=== PATIENT | male | born 1965 | race Caucasian/White ===

== ENCOUNTER 2018-05-14 07:20 | Inpatient (IN) | payer BC ==
[~2018-05-14 07:20] MED LIST: ACETAMINOPHEN 1000 MG/100 ML IVPB; EPHEDrine SULFATE 50 MG/5 ML SYG
[2018-05-14 09:17] LABS: ADD MAN DIFF? NO
[2018-05-14 09:19] LABS: BASOPHILS % 0.4 % (0.0-2.0); EOSINOPHILS # 0.2 10^3/ul (0.0-0.5); EOSINOPHILS % 3.9 % (0.0-7.0); HEMATOCRIT 38.2 % (37.0-47.0); HEMOGLOBIN 12.5 g/dl (12.0-16.0); LYMPHOCYTES # 0.8 10^3/ul (0.8-2.9); LYMPHOCYTES % 14.5 % (15.0-51.0); MEAN CORPUSCULAR HEMOGLOBIN 28.7 pg (29.0-33.0); MEAN CORPUSCULAR HGB CONC 32.7 g/dl (32.0-37.0); MEAN CORPUSCULAR VOLUME 87.6 fl (82.0-101.0); MEAN PLATELET VOLUME 8.2 fl (7.4-10.4); MONOCYTE # 0.4 10^3/ul (0.3-0.9); MONOCYTES % 7.7 % (0.0-11.0); NEUTROPHILS % 73.1 % (39.0-77.0); PLATELET COUNT 470 10^3/UL (140-415); RED BLOOD COUNT 4.36 10^6/ul (4.20-5.40); RED CELL DISTRIBUTION WIDTH 14.5 % (11.5-14.5)
[2018-05-14 09:19] LABS: WHITE BLOOD COUNT 5.4 10^3/ul (4.8-10.8)
[2018-05-14 09:39] LABS: ALANINE AMINOTRANSFERASE 34 IU/L (13-69); ALBUMIN 3.7 g/dl (3.3-4.9); ALBUMIN/GLOBULIN RATIO 1.19; ALKALINE PHOSPHATASE 92 IU/L (42-121); ANION GAP 11 (8-16); ASPARTATE AMINO TRANSFERASE 30 IU/L (15-46); BILIRUBIN,INDIRECT 0.4 mg/dl (0-1.1); BILIRUBIN,TOTAL 0.4 mg/dl (0.2-1.3); BLOOD UREA NITROGEN 10 mg/dl (7-20); CALCIUM 9.3 mg/dl (8.4-10.2); CARBON DIOXIDE 31 mmol/L (21-31); CHLORIDE 103 mmol/L (97-110); CREATININE 0.74 mg/dl (0.44-1.00); GLUCOSE 85 mg/dl (70-220); SODIUM 141 mmol/L (135-144); TOTAL PROTEIN 6.8 g/dl (6.1-8.1)
[2018-05-14 09:49] LABS: INR 0.96; PROTIME 12.9 Sec (11.9-14.9)
[2018-05-14] MEDS ORDERED: MIDAZOLAM 1 MG/ML 2 ML INJ (11:02)
[2018-05-14] MEDS ORDERED: ROCURONIUM 50 MG INJ ×2 (11:02→13:32)
[2018-05-14] MEDS ORDERED: CEFAZOLIN 1 GM INJ (11:02)
[2018-05-14] MEDS ORDERED: ROPIVACAINE 0.2% 20 ML VIAL (11:02)
[2018-05-14] MEDS ORDERED: PROPOFOL 20 ML ×3 (11:02→13:32)
[2018-05-14] MEDS ORDERED: METOCLOPRAMIDE 10 MG INJ IV (12:30)
[2018-05-14] MEDS ORDERED: EPHEDrine SULFATE 50 MG/5 ML SYG IV (12:30)
[2018-05-14] MEDS ORDERED: MEPERIDINE 25 MG INJ IV (12:30)
[2018-05-14] MEDS ORDERED: ONDANSETRON 4 MG INJ IV ×2 (12:30→16:30)
[2018-05-14] MEDS ORDERED: HYDROmorphONE 1 MG/5 ML IV SYRINGE IV ×2 (12:30)
[2018-05-14] MEDS ORDERED: morphine 2 MG INJ IV ×3 (12:30→16:30)
[2018-05-14] MEDS ORDERED: hydrALAzine 20 MG INJ IV (12:30)
[2018-05-14] MEDS ORDERED: NALBUPHINE HCL (10 MG/1 ML) INJ IV ×2 (12:30→16:30)
[2018-05-14] MEDS ORDERED: DIPHENHYDRAMINE 50 MG INJ IV ×3 (12:30→16:30)
[2018-05-14] MEDS ORDERED: FENTAnyl 50 MCG/ML VIAL IV (12:30)
[2018-05-14] MEDS: CEFAZOLIN 2 GM/50 ML (PMX) 50 ML IVPB (12:30)
[2018-05-14] MEDS ORDERED: NALOXONE (0.4 MG/ML) INJ IV ×2 (12:30→16:30)
[2018-05-14] MEDS ORDERED: LABETALOL HCL 20MG INJ IV (12:30)
[2018-05-14] MEDS ORDERED: PHENYLephrine (100 MCG/ML) 5ML SYG (12:45)
[2018-05-14] MEDS ORDERED: METHYLENE BLUE 1% 10 ML INJ (14:50)
[2018-05-14] MEDS ORDERED: FUROSEMIDE 20 MG INJ (15:07)
[2018-05-14] MEDS ORDERED: GLYCOPYRROLATE 0.4 MG INJ (15:53)
[2018-05-14] MEDS ORDERED: NEOSTIGMINE 3 MG/3 ML SYRINGE (15:53)
[2018-05-14] MEDS ORDERED: morphine SULFATE/PF (10 MG/10 ML) INJ (16:04)
[2018-05-14] MEDS: FENTAnyl 50 MCG/ML VIAL IV ×3 (16:24→16:52)
[2018-05-14] MEDS ORDERED: HYDROmorphONE 0.5 MG/0.5 ML SYG IV ×2 (16:30)
[2018-05-14] MEDS ORDERED: ACETAMINOPHEN 500 MG TAB PO (16:30)
[2018-05-14 16:57] LABS: ADD MAN DIFF? NO
[2018-05-14 16:59] LABS: BASOPHILS % 0.2 % (0.0-2.0); EOSINOPHILS # 0.1 10^3/ul (0.0-0.5); HEMATOCRIT 38.4 % (42.0-52.0); HEMOGLOBIN 12.2 g/dl (14.0-18.0); LYMPHOCYTES # 0.9 10^3/ul (0.8-2.9); LYMPHOCYTES % 7.6 % (15.0-51.0); MEAN CORPUSCULAR HGB CONC 31.8 g/dl (32.0-37.0); MEAN CORPUSCULAR VOLUME 88.3 fl (82.0-101.0); MONOCYTE # 0.6 10^3/ul (0.3-0.9); MONOCYTES % 5.1 % (0.0-11.0); NEUTROPHIL # 10.1 10^3/ul (1.6-7.5); NEUTROPHILS % 85.8 % (39.0-77.0); PLATELET COUNT 443 10^3/UL (140-415); RED BLOOD COUNT 4.35 10^6/ul (4.70-6.10); RED CELL DISTRIBUTION WIDTH 14.5 % (11.5-14.5)
[2018-05-14 16:59] LABS: WHITE BLOOD COUNT 11.7 10^3/ul (4.8-10.8)
[2018-05-14 17:25] LABS: ALANINE AMINOTRANSFERASE 31 IU/L (13-69); ALBUMIN 3.1 g/dl (3.3-4.9); ALKALINE PHOSPHATASE 82 IU/L (42-121); ANION GAP 11 (8-16); ASPARTATE AMINO TRANSFERASE 24 IU/L (15-46); BILIRUBIN,INDIRECT 0.3 mg/dl (0-1.1); BILIRUBIN,TOTAL 0.3 mg/dl (0.2-1.3); BLOOD UREA NITROGEN 10 mg/dl (7-20); CALCIUM 8.3 mg/dl (8.4-10.2); CARBON DIOXIDE 25 mmol/L (21-31); CHLORIDE 107 mmol/L (97-110); CREATININE 0.79 mg/dl (0.61-1.24); GLUCOSE 108 mg/dl (70-220); POTASSIUM 3.7 mmol/L (3.5-5.1); SODIUM 139 mmol/L (135-144); TOTAL PROTEIN 5.9 g/dl (6.1-8.1)
[2018-05-14] MEDS: SOD CHLORIDE 0.9% 1,000 ML IV (22:00)
[2018-05-15] MEDS: CEFAZOLIN 2 GM/50 ML (PMX) 50 ML IVPB ×2 (01:20→08:39)
[2018-05-15] MEDS: SOD CHLORIDE 0.9% 1,000 ML IV ×3 (01:53→19:53)
[2018-05-15] MEDS: HYDROmorphONE 0.5 MG/0.5 ML SYG IV ×9 (02:46→23:40)
[2018-05-15] MEDS: FENTAnyl 2MCG/ML-ROPIV 0.2% 100 ML BAG EPI ×2 (04:10→17:39)
[2018-05-15 05:42] LABS: ADD MAN DIFF? NO
[2018-05-15 05:48] LABS: ABNORMAL IP MESSAGE 1; BASOPHILS % 0.2 % (0.0-2.0); EOSINOPHILS % 0.1 % (0.0-7.0); HEMATOCRIT 36.1 % (42.0-52.0); HEMOGLOBIN 11.4 g/dl (14.0-18.0); LYMPHOCYTES # 0.5 10^3/ul (0.8-2.9); LYMPHOCYTES % 5.1 % (15.0-51.0); MEAN CORPUSCULAR HEMOGLOBIN 27.9 pg (29.0-33.0); MEAN CORPUSCULAR HGB CONC 31.6 g/dl (32.0-37.0); MEAN CORPUSCULAR VOLUME 88.5 fl (82.0-101.0); MEAN PLATELET VOLUME 8.3 fl (7.4-10.4); MONOCYTE # 0.6 10^3/ul (0.3-0.9); MONOCYTES % 5.2 % (0.0-11.0); NEUTROPHIL # 9.3 10^3/ul (1.6-7.5); PLATELET COUNT 485 10^3/UL (140-415); POSITIVE DIFF @See below; RED BLOOD COUNT 4.08 10^6/ul (4.70-6.10); RED CELL DISTRIBUTION WIDTH 14.6 % (11.5-14.5)
[2018-05-15 05:48] LABS: WHITE BLOOD COUNT 10.5 10^3/ul (4.8-10.8)
[2018-05-15 06:17] LABS: ALANINE AMINOTRANSFERASE 25 IU/L (13-69); ALBUMIN 2.7 g/dl (3.3-4.9); ALBUMIN/GLOBULIN RATIO 0.96; ALKALINE PHOSPHATASE 62 IU/L (42-121); ANION GAP 8 (8-16); ASPARTATE AMINO TRANSFERASE 25 IU/L (15-46); BILIRUBIN,INDIRECT 0.3 mg/dl (0-1.1); BILIRUBIN,TOTAL 0.3 mg/dl (0.2-1.3); BLOOD UREA NITROGEN 10 mg/dl (7-20); CALCIUM 8.1 mg/dl (8.4-10.2); CARBON DIOXIDE 28 mmol/L (21-31); CHLORIDE 106 mmol/L (97-110); CREATININE 0.74 mg/dl (0.61-1.24); GLUCOSE 103 mg/dl (70-220); POTASSIUM 3.7 mmol/L (3.5-5.1); SODIUM 138 mmol/L (135-144); TOTAL PROTEIN 5.5 g/dl (6.1-8.1)
[2018-05-15] MEDS ORDERED: NALOXONE (0.4 MG/ML) INJ IV (18:00)
[2018-05-16] MEDS: HYDROmorphONE 0.5 MG/0.5 ML SYG IV ×8 (02:13→21:49)
[2018-05-16] MEDS: PANTOPRAZOLE 40 MG INJ IV (05:01)
[2018-05-16 05:31] LABS: ADD MAN DIFF? NO
[2018-05-16 05:41] LABS: ABNORMAL IP MESSAGE 1; BASOPHILS % 0.2 % (0.0-2.0); HEMATOCRIT 35.4 % (42.0-52.0); HEMOGLOBIN 11.2 g/dl (14.0-18.0); LYMPHOCYTES # 0.5 10^3/ul (0.8-2.9); LYMPHOCYTES % 4.1 % (15.0-51.0); MEAN CORPUSCULAR HEMOGLOBIN 27.7 pg (29.0-33.0); MEAN CORPUSCULAR HGB CONC 31.6 g/dl (32.0-37.0); MEAN CORPUSCULAR VOLUME 87.6 fl (82.0-101.0); MEAN PLATELET VOLUME 8.5 fl (7.4-10.4); MONOCYTES % 8.3 % (0.0-11.0); NEUTROPHIL # 10.6 10^3/ul (1.6-7.5); NEUTROPHILS % 87.1 % (39.0-77.0); PLATELET COUNT 520 10^3/UL (140-415); POSITIVE DIFF @See below; RED BLOOD COUNT 4.04 10^6/ul (4.70-6.10); RED CELL DISTRIBUTION WIDTH 14.7 % (11.5-14.5)
[2018-05-16 05:41] LABS: WHITE BLOOD COUNT 12.2 10^3/ul (4.8-10.8)
[2018-05-16] MEDS: FENTAnyl 2MCG/ML-ROPIV 0.2% 100 ML BAG EPI (05:55)
[2018-05-16 06:01] LABS: MAGNESIUM 2.1 mg/dl (1.7-2.5)
[2018-05-16 06:01] LABS: PHOSPHORUS 2.3 mg/dl (2.5-4.9)
[2018-05-16 06:13] LABS: ANION GAP 12 (8-16); BLOOD UREA NITROGEN 8 mg/dl (7-20); CALCIUM 8.3 mg/dl (8.4-10.2); CARBON DIOXIDE 27 mmol/L (21-31); CHLORIDE 104 mmol/L (97-110); CREATININE 0.69 mg/dl (0.61-1.24); GLUCOSE 123 mg/dl (70-220); POTASSIUM 3.6 mmol/L (3.5-5.1); SODIUM 139 mmol/L (135-144)
[2018-05-16] MEDS: SOD CHLORIDE 0.9% 1,000 ML IV ×3 (07:53→21:49)
[2018-05-16] MEDS: morphine 2 MG INJ IV (23:48)
[2018-05-17] MEDS: PANTOPRAZOLE 40 MG INJ IV (01:26)
[2018-05-17] MEDS: ONDANSETRON 4 MG INJ IV (01:26)
[2018-05-17] MEDS: morphine 2 MG INJ IV ×2 (02:28→06:03)
[2018-05-17] MEDS: HYDROmorphONE 0.5 MG/0.5 ML SYG IV ×4 (04:08→16:01)
[2018-05-17 05:28] LABS: ADD MAN DIFF? NO
[2018-05-17 05:32] LABS: WHITE BLOOD COUNT 6.6 10^3/ul (4.8-10.8)
[2018-05-17 05:32] LABS: ABNORMAL IP MESSAGE 1; BASOPHILS % 0.3 % (0.0-2.0); EOSINOPHILS % 0.5 % (0.0-7.0); HEMATOCRIT 34.2 % (42.0-52.0); LYMPHOCYTES # 0.4 10^3/ul (0.8-2.9); LYMPHOCYTES % 6.1 % (15.0-51.0); MEAN CORPUSCULAR HEMOGLOBIN 28.3 pg (29.0-33.0); MEAN CORPUSCULAR HGB CONC 32.2 g/dl (32.0-37.0); MEAN CORPUSCULAR VOLUME 87.9 fl (82.0-101.0); MEAN PLATELET VOLUME 8.3 fl (7.4-10.4); MONOCYTE # 0.7 10^3/ul (0.3-0.9); MONOCYTES % 10.4 % (0.0-11.0); NEUTROPHIL # 5.4 10^3/ul (1.6-7.5); NEUTROPHILS % 82.2 % (39.0-77.0); PLATELET COUNT 507 10^3/UL (140-415); POSITIVE DIFF @See below; RED BLOOD COUNT 3.89 10^6/ul (4.70-6.10); RED CELL DISTRIBUTION WIDTH 14.5 % (11.5-14.5)
[2018-05-17 05:46] LABS: ANION GAP 10 (8-16); BLOOD UREA NITROGEN 8 mg/dl (7-20); CALCIUM 8.4 mg/dl (8.4-10.2); CARBON DIOXIDE 28 mmol/L (21-31); CHLORIDE 103 mmol/L (97-110); CREATININE 0.55 mg/dl (0.61-1.24); GLUCOSE 104 mg/dl (70-220); POTASSIUM 3.6 mmol/L (3.5-5.1); SODIUM 137 mmol/L (135-144)
[2018-05-17 05:46] LABS: PHOSPHORUS 2.4 mg/dl (2.5-4.9)
[2018-05-17] MEDS: SOD CHLORIDE 0.9% 1,000 ML IV ×2 (08:06→23:14)
[2018-05-17] MEDS: FENTAnyl 2MCG/ML-ROPIV 0.2% 100 ML BAG EPI (17:40)
[2018-05-17] MEDS ORDERED: NALOXONE (0.4 MG/ML) INJ IV (21:30)
[2018-05-18] MEDS: SOD CHLORIDE 0.9% 1,000 ML IV ×2 (05:12→15:29)
[2018-05-18] MEDS: FENTAnyl 2MCG/ML-ROPIV 0.2% 100 ML BAG EPI ×2 (05:16→16:05)
[2018-05-18] MEDS: PANTOPRAZOLE 40 MG INJ IV (05:17)
[2018-05-19] MEDS: SOD CHLORIDE 0.9% 1,000 ML IV ×5 (02:02→17:07)
[2018-05-19] MEDS: FENTAnyl 2MCG/ML-ROPIV 0.2% 100 ML BAG EPI (02:39)
[2018-05-19] MEDS: PANTOPRAZOLE 40 MG INJ IV (05:15)
[2018-05-19 05:27] LABS: ADD MAN DIFF? NO
[2018-05-19 05:34] LABS: ABNORMAL IP MESSAGE 1; BASOPHILS % 0.2 % (0.0-2.0); EOSINOPHILS # 0.3 10^3/ul (0.0-0.5); EOSINOPHILS % 2.3 % (0.0-7.0); HEMATOCRIT 35.5 % (42.0-52.0); HEMOGLOBIN 11.3 g/dl (14.0-18.0); LYMPHOCYTES # 0.5 10^3/ul (0.8-2.9); LYMPHOCYTES % 4.9 % (15.0-51.0); MEAN CORPUSCULAR HEMOGLOBIN 27.3 pg (29.0-33.0); MEAN CORPUSCULAR HGB CONC 31.8 g/dl (32.0-37.0); MEAN CORPUSCULAR VOLUME 85.7 fl (82.0-101.0); MEAN PLATELET VOLUME 8.5 fl (7.4-10.4); MONOCYTE # 0.9 10^3/ul (0.3-0.9); MONOCYTES % 8.4 % (0.0-11.0); NEUTROPHIL # 8.9 10^3/ul (1.6-7.5); NEUTROPHILS % 83.5 % (39.0-77.0); PLATELET COUNT 485 10^3/UL (140-415); POSITIVE DIFF @See below; RED BLOOD COUNT 4.14 10^6/ul (4.70-6.10); RED CELL DISTRIBUTION WIDTH 14.1 % (11.5-14.5)
[2018-05-19 05:34] LABS: WHITE BLOOD COUNT 10.7 10^3/ul (4.8-10.8)
[2018-05-19 06:24] LABS: ANION GAP 11 (8-16); BLOOD UREA NITROGEN 11 mg/dl (7-20); CALCIUM 8.3 mg/dl (8.4-10.2); CARBON DIOXIDE 31 mmol/L (21-31); CHLORIDE 97 mmol/L (97-110); CREATININE 0.59 mg/dl (0.61-1.24); GLUCOSE 97 mg/dl (70-220); POTASSIUM 3.4 mmol/L (3.5-5.1); SODIUM 136 mmol/L (135-144)
[2018-05-19] MEDS: POTASSIUM CHLORIDE (SR) 20 MEQ TAB PO (08:40)
[2018-05-19] MEDS: HYDROmorphONE 0.5 MG/0.5 ML SYG IV ×3 (09:20→21:30)
[2018-05-19] MEDS: ONDANSETRON 4 MG INJ IV (10:10)
[2018-05-19] MEDS: HYDROmorphONE 1 MG/ML SYG IV (11:02)
[2018-05-19] MEDS ORDERED: morphine SULFATE/PF (10 MG/10 ML) INJ (11:51)
[2018-05-19] MEDS: IOHEXOL 300MG/ML 150 ML BTL (13:31)
[2018-05-19] MEDS: SOD CHLORIDE 0.9% 100 ML (13:31)
[2018-05-19] MEDS ORDERED: morphine 2 MG INJ IV ×2 (14:00)
[2018-05-19] MEDS ORDERED: NALOXONE (0.4 MG/ML) INJ IV (14:00)
[2018-05-19] MEDS ORDERED: NALBUPHINE HCL (10 MG/1 ML) INJ IV (14:00)
[2018-05-19] MEDS ORDERED: DIPHENHYDRAMINE 50 MG INJ IV (14:00)
[2018-05-19 17:33] LABS: THYROID STIMULATING HORMONE 0.724 MIU/L (0.465-4.680)
[2018-05-19] MEDS ORDERED: VANCOMYCIN IV PER PHARMACY XX (18:00)
[2018-05-19] MEDS: PIPER-TAZO 3.375 GM IV (PMX) 100 ML IVPB ×2 (18:16→23:05)
[2018-05-19 19:45] LABS: ADD MAN DIFF? NO
[2018-05-19 19:46] LABS: WHITE BLOOD COUNT 14.2 10^3/ul (4.8-10.8)
[2018-05-19 19:46] LABS: ABNORMAL IP MESSAGE 1; HEMATOCRIT 41.9 % (42.0-52.0); HEMOGLOBIN 13.6 g/dl (14.0-18.0); MEAN CORPUSCULAR HEMOGLOBIN 28.1 pg (29.0-33.0); MEAN CORPUSCULAR HGB CONC 32.5 g/dl (32.0-37.0); MEAN CORPUSCULAR VOLUME 86.6 fl (82.0-101.0); PLATELET COUNT 566 10^3/UL (140-415); POSITIVE DIFF @See below; RED BLOOD COUNT 4.84 10^6/ul (4.70-6.10); RED CELL DISTRIBUTION WIDTH 13.9 % (11.5-14.5)
[2018-05-19] MEDS ORDERED: VANCOMYCIN 1.5 GM in SOD CHLORIDE 0.9% 250 ML IVPB (20:00)
[2018-05-19 20:06] LABS: INR 1.26; PT RATIO 1.3
[2018-05-19] MEDS: metroNIDAZOLE 500 MG/NS (PMX) 100 ML IVPB (21:29)
[2018-05-19 22:47] LABS: BAND NEUTROPHILS #M 7.2 10^3/ul (0.0-0.6); BAND NEUTROPHILS % (M) 51 % (0-4); EOSINOPHILS % (M) 2 % (0-7); LYMPHOCYTES #M 0.1 10^3/ul (0.8-2.9); LYMPHOCYTES % (M) 1 % (15-51); METAMYELOCYTES #M 0.4 10^3/ul (0.0-0.0); METAMYELOCYTES %M 3 % (0-0); MONOCYTE #M 0.5 10^3/ul (0.3-0.9); MONOCYTES % (M) 4 % (0-11); MYELOCYTES #M 0.1 10^3/ul (0.0-0.0); MYELOCYTES % (M) 1 % (0-0); PLASMA CELLS #M 0.1 10^3/ul (0.0-0.0); PLASMAC%(M) 1 % (0); PLATELET ESTIMATE INCREASED; REACTIVE LYMPHOCYTES #M 0.1 10^3/ul (0.0-0.0); REACTIVE LYMPHOCYTES% (M) 1 % (0-0); SEG NEUT #M 6.1 10^3/ul (1.6-7.5); SEGMENTED NEUTROPHILS (M) % 36 % (39-77); SMUDGE%M 13 % (0-0)
[2018-05-20] MEDS: HYDROmorphONE 0.5 MG/0.5 ML SYG IV ×2 (00:32→14:41)
[2018-05-20] MEDS: SOD CHLORIDE 0.9% 1,000 ML IV ×3 (01:53→21:15)
[2018-05-20] MEDS: PANTOPRAZOLE 40 MG INJ IV (05:06)
[2018-05-20] MEDS: PIPER-TAZO 3.375 GM IV (PMX) 100 ML IVPB ×4 (05:06→23:24)
[2018-05-20] MEDS: metroNIDAZOLE 500 MG/NS (PMX) 100 ML IVPB ×3 (05:07→21:15)
[2018-05-20 08:52] LABS: ABNORMAL IP MESSAGE 1; HEMATOCRIT 38.7 % (42.0-52.0); HEMOGLOBIN 12.6 g/dl (14.0-18.0); MEAN CORPUSCULAR HEMOGLOBIN 27.6 pg (29.0-33.0); MEAN CORPUSCULAR HGB CONC 32.6 g/dl (32.0-37.0); MEAN CORPUSCULAR VOLUME 84.7 fl (82.0-101.0); MEAN PLATELET VOLUME 8.6 fl (7.4-10.4); PLATELET COUNT 557 10^3/UL (140-415); POSITIVE DIFF @See below; RED BLOOD COUNT 4.57 10^6/ul (4.70-6.10); RED CELL DISTRIBUTION WIDTH 14.4 % (11.5-14.5)
[2018-05-20 09:03] LABS: ADD MAN DIFF? YES
[2018-05-20 09:09] LABS: ALANINE AMINOTRANSFERASE 20 IU/L (13-69); ALBUMIN 2.6 g/dl (3.3-4.9); ALKALINE PHOSPHATASE 64 IU/L (42-121); ANION GAP 13 (8-16); ASPARTATE AMINO TRANSFERASE 15 IU/L (15-46); BILIRUBIN,INDIRECT 0.4 mg/dl (0-1.1); BILIRUBIN,TOTAL 0.4 mg/dl (0.2-1.3); BLOOD UREA NITROGEN 25 mg/dl (7-20); CALCIUM 8.1 mg/dl (8.4-10.2); CARBON DIOXIDE 25 mmol/L (21-31); CHLORIDE 100 mmol/L (97-110); CREATININE 0.99 mg/dl (0.61-1.24); GLUCOSE 126 mg/dl (70-220); POTASSIUM 3.9 mmol/L (3.5-5.1); SODIUM 134 mmol/L (135-144); TOTAL PROTEIN 5.2 g/dl (6.1-8.1)
[2018-05-20 10:22] LABS: ANISOCYTOSIS 1+ (0-0); BAND NEUTROPHILS % (M) 63 % (0-4); LYMPHOCYTES #M 0.3 10^3/ul (0.8-2.9); LYMPHOCYTES % (M) 2 % (15-51); MONOCYTE #M 0.9 10^3/ul (0.3-0.9); MONOCYTES % (M) 6 % (0-11); PLATELET ESTIMATE INCREASED; POLYCHROMASIA 2+ (0-0); SEG NEUT #M 6.2 10^3/ul (1.6-7.5); SEGMENTED NEUTROPHILS (M) % 29 % (39-77); SMUDGE%M 1 % (0-0)
[2018-05-20] MEDS: SOD CHLORIDE 0.9% 500 ML (12:20)
[2018-05-20] MEDS: FENTAnyl 50 MCG/ML VIAL (12:27)
[2018-05-20] MEDS: MIDAZOLAM 1 MG/ML 2 ML INJ (12:28)
[2018-05-20] MEDS: LIDOCAINE 1% (MDV) 10 ML INJ (12:40)
[2018-05-20] MEDS: HYDROCODONE/APAP (5/325) TAB PO ×2 (18:25→22:42)
[2018-05-21] MEDS: HYDROCODONE/APAP (5/325) TAB PO ×5 (02:29→20:07)
[2018-05-21] MEDS: PIPER-TAZO 3.375 GM IV (PMX) 100 ML IVPB ×4 (04:59→23:25)
[2018-05-21] MEDS: metroNIDAZOLE 500 MG/NS (PMX) 100 ML IVPB ×3 (05:01→20:07)
[2018-05-21] MEDS: PANTOPRAZOLE 40 MG INJ IV (05:01)
[2018-05-21 06:33] LABS: WHITE BLOOD COUNT 16.4 10^3/ul (4.8-10.8)
[2018-05-21 06:33] LABS: ABNORMAL IP MESSAGE 1; HEMATOCRIT 31.5 % (42.0-52.0); HEMOGLOBIN 10.3 g/dl (14.0-18.0); MEAN CORPUSCULAR HEMOGLOBIN 27.8 pg (29.0-33.0); MEAN CORPUSCULAR HGB CONC 32.7 g/dl (32.0-37.0); MEAN CORPUSCULAR VOLUME 84.9 fl (82.0-101.0); MEAN PLATELET VOLUME 8.5 fl (7.4-10.4); PLATELET COUNT 530 10^3/UL (140-415); POSITIVE DIFF @See below; RED BLOOD COUNT 3.71 10^6/ul (4.70-6.10); RED CELL DISTRIBUTION WIDTH 14.2 % (11.5-14.5)
[2018-05-21 06:48] LABS: ADD MAN DIFF? YES
[2018-05-21 06:59] LABS: PHOSPHORUS 2.3 mg/dl (2.5-4.9)
[2018-05-21 07:10] LABS: ANION GAP 11 (8-16); BLOOD UREA NITROGEN 17 mg/dl (7-20); CALCIUM 8.1 mg/dl (8.4-10.2); CARBON DIOXIDE 28 mmol/L (21-31); CHLORIDE 100 mmol/L (97-110); GLUCOSE 109 mg/dl (70-220); POTASSIUM 3.3 mmol/L (3.5-5.1); SODIUM 136 mmol/L (135-144)
[2018-05-21] MEDS: SOD CHLORIDE 0.9% 1,000 ML IV ×2 (08:21→18:30)
[2018-05-21 09:19] LABS: BAND NEUTROPHILS #M 7.5 10^3/ul (0.0-0.6); BAND NEUTROPHILS % (M) 46 % (0-4); LYMPHOCYTES #M 0.1 10^3/ul (0.8-2.9); LYMPHOCYTES % (M) 1 % (15-51); MONOCYTE #M 0.3 10^3/ul (0.3-0.9); MONOCYTES % (M) 2 % (0-11); PLATELET ESTIMATE NORMAL; SEG NEUT #M 9.6 10^3/ul (1.6-7.5); SEGMENTED NEUTROPHILS (M) % 51 % (39-77); SMUDGE%M 4 % (0-0)
[2018-05-21] MEDS: POTASSIUM CHLORIDE 50 ML IVPB ×3 (15:30→17:31)
[2018-05-21] MEDS: ONDANSETRON 4 MG INJ IV (20:07)
[2018-05-22] MEDS: HYDROCODONE/APAP (5/325) TAB PO ×6 (00:28→22:19)
[2018-05-22] MEDS: SOD CHLORIDE 0.9% 1,000 ML IV ×3 (03:47→23:53)
[2018-05-22] MEDS: PANTOPRAZOLE 40 MG INJ IV (04:21)
[2018-05-22] MEDS: metroNIDAZOLE 500 MG/NS (PMX) 100 ML IVPB ×3 (04:21→22:33)
[2018-05-22] MEDS: PIPER-TAZO 3.375 GM IV (PMX) 100 ML IVPB ×3 (06:12→17:42)
[2018-05-22 11:57] LABS: ADD MAN DIFF? NO
[2018-05-22 12:12] LABS: ABNORMAL IP MESSAGE 1; HEMATOCRIT 31.9 % (42.0-52.0); HEMOGLOBIN 10.1 g/dl (14.0-18.0); IMMATURE GRANS #M 0.16 10^3/ul; IMMATURE GRANS % (M) 0.8 %; MEAN CORPUSCULAR HEMOGLOBIN 27.2 pg (29.0-33.0); MEAN CORPUSCULAR HGB CONC 31.7 g/dl (32.0-37.0); MEAN CORPUSCULAR VOLUME 85.8 fl (82.0-101.0); MEAN PLATELET VOLUME 8.6 fl (7.4-10.4); PLATELET COUNT 505 10^3/UL (140-415); POSITIVE DIFF @See below; RED BLOOD COUNT 3.72 10^6/ul (4.70-6.10); RED CELL DISTRIBUTION WIDTH 14.6 % (11.5-14.5)
[2018-05-22 12:12] LABS: WHITE BLOOD COUNT 19.5 10^3/ul (4.8-10.8)
[2018-05-22 12:24] LABS: ANION GAP 8 (8-16); BLOOD UREA NITROGEN 9 mg/dl (7-20); CALCIUM 8.2 mg/dl (8.4-10.2); CARBON DIOXIDE 36 mmol/L (21-31); CHLORIDE 94 mmol/L (97-110); CREATININE 0.57 mg/dl (0.61-1.24); GLUCOSE 81 mg/dl (70-220); POTASSIUM 3.7 mmol/L (3.5-5.1); SODIUM 134 mmol/L (135-144)
[2018-05-22 13:29] LABS: BAND NEUTROPHILS #M 3.3 10^3/ul (0.0-0.6); BAND NEUTROPHILS % (M) 17 % (0-4); BURR CELLS 2+ (0-0); LYMPHOCYTES #M 0.3 10^3/ul (0.8-2.9); LYMPHOCYTES % (M) 2 % (15-51); MONOCYTE #M 0.3 10^3/ul (0.3-0.9); MONOCYTES % (M) 2 % (0-11); PLATELET ESTIMATE INCREASED; POIKILOCYTOSIS 3+ (0-0); SEGMENTED NEUTROPHILS (M) % 79 % (39-77); SMUDGE%M 9 % (0-0)
[2018-05-22 17:09] LABS: INR 1.69; PROTIME 20.2 Sec (11.9-14.9); PT RATIO 1.6
[2018-05-22 17:10] LABS: PARTIAL THROMBOPLASTIN TIME 34.3 Sec (25.0-35.0)
[2018-05-22] MEDS ORDERED: LORAZEPAM 2 MG INJ IM (22:30)
[2018-05-22] MEDS: LORAZEPAM 2 MG INJ IV (22:46)
[2018-05-23] MEDS: PIPER-TAZO 3.375 GM IV (PMX) 100 ML IVPB ×4 (00:32→17:09)
[2018-05-23] MEDS: traZODone 50 MG TAB PO (01:30)
[2018-05-23] MEDS: ALBUTEROL/IPRATROPIUM (NEB) 3 ML AMP HHN (02:24)
[2018-05-23] MEDS: SOD CHLORIDE 0.9% 1,000 ML IV ×2 (03:32→09:08)
[2018-05-23] MEDS: metroNIDAZOLE 500 MG/NS (PMX) 100 ML IVPB ×3 (05:25→21:25)
[2018-05-23] MEDS: PANTOPRAZOLE 40 MG INJ IV (05:25)
[2018-05-23 07:11] LABS: ADD MAN DIFF? NO
[2018-05-23 07:16] LABS: ABNORMAL IP MESSAGE 1; BASOPHILS % 0.2 % (0.0-2.0); EOSINOPHILS % 0.1 % (0.0-7.0); HEMATOCRIT 31.3 % (42.0-52.0); IMMATURE GRANS #M 0.22 10^3/ul; IMMATURE GRANS % (M) 1.1 %; LYMPHOCYTES # 0.4 10^3/ul (0.8-2.9); LYMPHOCYTES % 2.1 % (15.0-51.0); MEAN CORPUSCULAR HEMOGLOBIN 27.2 pg (29.0-33.0); MEAN CORPUSCULAR HGB CONC 31.9 g/dl (32.0-37.0); MEAN CORPUSCULAR VOLUME 85.3 fl (82.0-101.0); MEAN PLATELET VOLUME 8.3 fl (7.4-10.4); MONOCYTE # 0.8 10^3/ul (0.3-0.9); MONOCYTES % 4.1 % (0.0-11.0); NEUTROPHIL # 17.9 10^3/ul (1.6-7.5); NEUTROPHILS % 92.4 % (39.0-77.0); PLATELET COUNT 495 10^3/UL (140-415); POSITIVE DIFF @See below; RED BLOOD COUNT 3.67 10^6/ul (4.70-6.10); RED CELL DISTRIBUTION WIDTH 14.6 % (11.5-14.5)
[2018-05-23 07:16] LABS: WHITE BLOOD COUNT 19.4 10^3/ul (4.8-10.8)
[2018-05-23 07:40] LABS: ANION GAP 13 (8-16); BLOOD UREA NITROGEN 9 mg/dl (7-20); CALCIUM 8.1 mg/dl (8.4-10.2); CARBON DIOXIDE 31 mmol/L (21-31); CHLORIDE 96 mmol/L (97-110); CREATININE 0.51 mg/dl (0.61-1.24); GLUCOSE 67 mg/dl (70-220); POTASSIUM 3.1 mmol/L (3.5-5.1); SODIUM 137 mmol/L (135-144)
[2018-05-23] MEDS: HYDROCODONE/APAP (5/325) TAB PO ×3 (09:02→21:25)
[2018-05-23] MEDS: D5W-0.45 NACL + KCL 40 MEQ 1,000 ML IV ×2 (09:30→19:32)
[2018-05-23] MEDS ORDERED: VANCOMYCIN IV PER PHARMACY XX (09:30)
[2018-05-23] MEDS: POTASSIUM CHLORIDE 50 ML IVPB ×3 (11:09→11:30)
[2018-05-23] MEDS: VANCOMYCIN 1.5 GM in SOD CHLORIDE 0.9% 250 ML IVPB (11:09)
[2018-05-23] MEDS: DEXTROSE 50% 50 ML SYRINGE IV (11:16)
[2018-05-23] MEDS: DIATR MEGLU/DIATRIZOATE SODIUM 120 ML BTL (12:40)
[2018-05-23] MEDS: IOHEXOL 14.3 MG(I)/ML (ADULT) BTL PO (21:00)
[2018-05-23] MEDS: SOD CHLORIDE 0.9% 100 ML (21:48)
[2018-05-23] MEDS: IOHEXOL 300MG/ML 30 ML BTL (21:49)
[2018-05-23] MEDS: VANCOMYCIN 1 GM 250 ML IVPB (23:28)
[2018-05-24] MEDS: PIPER-TAZO 3.375 GM IV (PMX) 100 ML IVPB ×4 (00:46→17:45)
[2018-05-24] MEDS: LORAZEPAM 2 MG INJ IV (00:47)
[2018-05-24] MEDS: hydrALAzine 20 MG INJ IV (02:09)
[2018-05-24] MEDS ORDERED: LEVALBUTEROL (NEB) 1.25 MG/0.5 ML AMP (02:49)
[2018-05-24] MEDS: LEVALBUTEROL (NEB) 1.25 MG/0.5 ML AMP HHN (02:53)
[2018-05-24] MEDS: PANTOPRAZOLE 40 MG INJ IV (06:07)
[2018-05-24] MEDS: metroNIDAZOLE 500 MG/NS (PMX) 100 ML IVPB ×3 (06:07→21:26)
[2018-05-24 06:13] LABS: ADD MAN DIFF? NO
[2018-05-24 06:19] LABS: ABNORMAL IP MESSAGE 1; BASOPHILS % 0.1 % (0.0-2.0); EOSINOPHILS % 0.2 % (0.0-7.0); HEMOGLOBIN 10.3 g/dl (14.0-18.0); IMMATURE GRANS #M 0.26 10^3/ul; IMMATURE GRANS % (M) 1.5 %; LYMPHOCYTES # 0.5 10^3/ul (0.8-2.9); LYMPHOCYTES % 2.7 % (15.0-51.0); MEAN CORPUSCULAR HEMOGLOBIN 27.7 pg (29.0-33.0); MEAN CORPUSCULAR HGB CONC 32.2 g/dl (32.0-37.0); MEAN PLATELET VOLUME 8.4 fl (7.4-10.4); MONOCYTE # 0.8 10^3/ul (0.3-0.9); MONOCYTES % 4.4 % (0.0-11.0); NEUTROPHIL # 15.9 10^3/ul (1.6-7.5); NEUTROPHILS % 91.1 % (39.0-77.0); PLATELET COUNT 538 10^3/UL (140-415); POSITIVE DIFF @See below; RED BLOOD COUNT 3.72 10^6/ul (4.70-6.10); RED CELL DISTRIBUTION WIDTH 14.6 % (11.5-14.5)
[2018-05-24 06:19] LABS: WHITE BLOOD COUNT 17.5 10^3/ul (4.8-10.8)
[2018-05-24 06:48] LABS: ANION GAP 10 (8-16); BLOOD UREA NITROGEN 7 mg/dl (7-20); CALCIUM 8.3 mg/dl (8.4-10.2); CARBON DIOXIDE 37 mmol/L (21-31); CHLORIDE 94 mmol/L (97-110); CREATININE 0.49 mg/dl (0.61-1.24); GLUCOSE 124 mg/dl (70-220); POTASSIUM 3.1 mmol/L (3.5-5.1); SODIUM 138 mmol/L (135-144)
[2018-05-24] MEDS: POTASSIUM CHLORIDE 100 ML IVPB ×4 (10:11→16:52)
[2018-05-24 10:30] LABS: INR 1.25; PROTIME 15.9 Sec (11.9-14.9); PT RATIO 1.2
[2018-05-24 10:39] LABS: PARTIAL THROMBOPLASTIN TIME 35.4 Sec (25.0-35.0)
[2018-05-24] MEDS: VANCOMYCIN 1 GM 250 ML IVPB (12:07)
[2018-05-24] MEDS: HYDROCODONE/APAP (5/325) TAB PO (12:17)
[2018-05-24] MEDS: LIDOCAINE 1% (MPF) 5 ML VIAL (17:07)
[2018-05-24 23:41] LABS: VANCOMYCIN,TROUGH 6.1 ug/ml (10.0-20.0)
[2018-05-25] MEDS: VANCOMYCIN 1 GM 250 ML IVPB ×3 (00:29→16:50)
[2018-05-25] MEDS: PIPER-TAZO 3.375 GM IV (PMX) 100 ML IVPB ×4 (00:29→18:14)
[2018-05-25] MEDS: metroNIDAZOLE 500 MG/NS (PMX) 100 ML IVPB ×3 (05:50→20:57)
[2018-05-25] MEDS: PANTOPRAZOLE 40 MG INJ IV (05:51)
[2018-05-25 09:33] LABS: ADD MAN DIFF? NO
[2018-05-25 09:40] LABS: WHITE BLOOD COUNT 14.7 10^3/ul (4.8-10.8)
[2018-05-25 09:40] LABS: ABNORMAL IP MESSAGE 1; BASOPHILS % 0.3 % (0.0-2.0); EOSINOPHILS # 0.1 10^3/ul (0.0-0.5); EOSINOPHILS % 0.3 % (0.0-7.0); HEMATOCRIT 37.9 % (42.0-52.0); HEMOGLOBIN 12.1 g/dl (14.0-18.0); IMMATURE GRANS #M 0.24 10^3/ul; IMMATURE GRANS % (M) 1.6 %; LYMPHOCYTES # 0.6 10^3/ul (0.8-2.9); LYMPHOCYTES % 3.9 % (15.0-51.0); MEAN CORPUSCULAR HEMOGLOBIN 27.4 pg (29.0-33.0); MEAN CORPUSCULAR HGB CONC 31.9 g/dl (32.0-37.0); MEAN CORPUSCULAR VOLUME 85.9 fl (82.0-101.0); MEAN PLATELET VOLUME 8.4 fl (7.4-10.4); MONOCYTE # 0.7 10^3/ul (0.3-0.9); MONOCYTES % 4.6 % (0.0-11.0); NEUTROPHIL # 13.1 10^3/ul (1.6-7.5); NEUTROPHILS % 89.3 % (39.0-77.0); PLATELET COUNT 575 10^3/UL (140-415); POSITIVE DIFF @See below; RED BLOOD COUNT 4.41 10^6/ul (4.70-6.10); RED CELL DISTRIBUTION WIDTH 14.5 % (11.5-14.5)
[2018-05-25 10:11] LABS: PHOSPHORUS 3.3 mg/dl (2.5-4.9)
[2018-05-25 10:11] LABS: MAGNESIUM 1.9 mg/dl (1.7-2.5)
[2018-05-25 10:12] LABS: ANION GAP 10 (8-16); BLOOD UREA NITROGEN 7 mg/dl (7-20); CALCIUM 8.3 mg/dl (8.4-10.2); CARBON DIOXIDE 36 mmol/L (21-31); CHLORIDE 93 mmol/L (97-110); CREATININE 0.44 mg/dl (0.61-1.24); GLUCOSE 156 mg/dl (70-220); POTASSIUM 3.2 mmol/L (3.5-5.1); SODIUM 136 mmol/L (135-144)
[2018-05-26] MEDS: VANCOMYCIN 1 GM 250 ML IVPB ×4 (00:01→23:15)
[2018-05-26] MEDS: PIPER-TAZO 3.375 GM IV (PMX) 100 ML IVPB ×5 (00:06→23:15)
[2018-05-26] MEDS: PANTOPRAZOLE 40 MG INJ IV (06:31)
[2018-05-26] MEDS: metroNIDAZOLE 500 MG/NS (PMX) 100 ML IVPB ×2 (06:34→13:42)
[2018-05-26 07:24] LABS: ADD MAN DIFF? NO
[2018-05-26 07:26] LABS: WHITE BLOOD COUNT 14.2 10^3/ul (4.8-10.8)
[2018-05-26 07:26] LABS: ABNORMAL IP MESSAGE 1; BASOPHILS % 0.1 % (0.0-2.0); EOSINOPHILS # 0.1 10^3/ul (0.0-0.5); EOSINOPHILS % 0.4 % (0.0-7.0); HEMOGLOBIN 10.9 g/dl (14.0-18.0); LYMPHOCYTES # 0.5 10^3/ul (0.8-2.9); LYMPHOCYTES % 3.8 % (15.0-51.0); MEAN CORPUSCULAR HEMOGLOBIN 27.5 pg (29.0-33.0); MEAN CORPUSCULAR HGB CONC 32.1 g/dl (32.0-37.0); MEAN CORPUSCULAR VOLUME 85.6 fl (82.0-101.0); MEAN PLATELET VOLUME 8.5 fl (7.4-10.4); MONOCYTE # 0.6 10^3/ul (0.3-0.9); MONOCYTES % 4.2 % (0.0-11.0); NEUTROPHIL # 12.8 10^3/ul (1.6-7.5); NEUTROPHILS % 90.4 % (39.0-77.0); PLATELET COUNT 641 10^3/UL (140-415); POSITIVE DIFF @See below; RED BLOOD COUNT 3.97 10^6/ul (4.70-6.10); RED CELL DISTRIBUTION WIDTH 14.6 % (11.5-14.5)
[2018-05-26 07:48] LABS: ANION GAP 9 (8-16); BLOOD UREA NITROGEN 7 mg/dl (7-20); CALCIUM 8.2 mg/dl (8.4-10.2); CARBON DIOXIDE 36 mmol/L (21-31); CHLORIDE 93 mmol/L (97-110); CREATININE 0.54 mg/dl (0.61-1.24); GLUCOSE 105 mg/dl (70-220); SODIUM 135 mmol/L (135-144)
[2018-05-26 07:51] LABS: MAGNESIUM 1.9 mg/dl (1.7-2.5)
[2018-05-26 07:51] LABS: PHOSPHORUS 3.5 mg/dl (2.5-4.9)
[2018-05-26 07:56] LABS: VANCOMYCIN,TROUGH 15.1 ug/ml (10.0-20.0)
[2018-05-26] MEDS: POTASSIUM CHLORIDE (SR) 20 MEQ TAB PO ×2 (08:49→10:39)
[2018-05-26] MEDS ORDERED: CIPROFLOXACIN 400MG/D5W 200 ML IVPB ×2 (12:30→15:00)
[2018-05-26] MEDS: LIDOCAINE 1% (MPF) 5 ML VIAL (16:09)
[2018-05-27] MEDS: PANTOPRAZOLE 40 MG INJ IV (05:28)
[2018-05-27] MEDS: PIPER-TAZO 3.375 GM IV (PMX) 100 ML IVPB ×3 (05:28→18:04)
[2018-05-27 06:52] LABS: ADD MAN DIFF? NO
[2018-05-27 07:01] LABS: WHITE BLOOD COUNT 13.8 10^3/ul (4.8-10.8)
[2018-05-27 07:01] LABS: BASOPHILS % 0.2 % (0.0-2.0); EOSINOPHILS # 0.1 10^3/ul (0.0-0.5); EOSINOPHILS % 0.9 % (0.0-7.0); HEMATOCRIT 32.5 % (42.0-52.0); HEMOGLOBIN 10.5 g/dl (14.0-18.0); LYMPHOCYTES # 0.7 10^3/ul (0.8-2.9); LYMPHOCYTES % 5.1 % (15.0-51.0); MEAN CORPUSCULAR HEMOGLOBIN 27.3 pg (29.0-33.0); MEAN CORPUSCULAR HGB CONC 32.3 g/dl (32.0-37.0); MEAN CORPUSCULAR VOLUME 84.4 fl (82.0-101.0); MEAN PLATELET VOLUME 8.6 fl (7.4-10.4); MONOCYTE # 0.8 10^3/ul (0.3-0.9); MONOCYTES % 5.4 % (0.0-11.0); NEUTROPHIL # 12.1 10^3/ul (1.6-7.5); NEUTROPHILS % 87.5 % (39.0-77.0); PLATELET COUNT 720 10^3/UL (140-415); RED BLOOD COUNT 3.85 10^6/ul (4.70-6.10); RED CELL DISTRIBUTION WIDTH 14.7 % (11.5-14.5)
[2018-05-27 07:27] LABS: ANION GAP 11 (8-16); BLOOD UREA NITROGEN 6 mg/dl (7-20); CALCIUM 8.3 mg/dl (8.4-10.2); CARBON DIOXIDE 34 mmol/L (21-31); CHLORIDE 95 mmol/L (97-110); GLUCOSE 104 mg/dl (70-220); POTASSIUM 3.3 mmol/L (3.5-5.1); SODIUM 137 mmol/L (135-144)
[2018-05-27 07:29] LABS: MAGNESIUM 1.8 mg/dl (1.7-2.5)
[2018-05-27 07:29] LABS: PHOSPHORUS 3.2 mg/dl (2.5-4.9)
[2018-05-27] MEDS: VANCOMYCIN 1 GM 250 ML IVPB ×2 (08:00→16:42)
[2018-05-27] MEDS: POTASSIUM CHLORIDE (SR) 20 MEQ TAB PO (13:51)
[2018-05-27] MEDS: MAGNESIUM SULFATE 2 GM/50 ML 50 ML IVPB (13:51)
[2018-05-28] MEDS: PIPER-TAZO 3.375 GM IV (PMX) 100 ML IVPB ×5 (00:23→23:44)
[2018-05-28] MEDS: VANCOMYCIN 1 GM 250 ML IVPB ×5 (00:23→23:45)
[2018-05-28] MEDS: PANTOPRAZOLE 40 MG INJ IV (06:34)
[2018-05-28 08:05] LABS: ADD MAN DIFF? NO
[2018-05-28 08:10] LABS: BASOPHILS % 0.2 % (0.0-2.0); EOSINOPHILS # 0.1 10^3/ul (0.0-0.5); EOSINOPHILS % 0.5 % (0.0-7.0); HEMATOCRIT 32.9 % (42.0-52.0); HEMOGLOBIN 10.6 g/dl (14.0-18.0); LYMPHOCYTES # 0.7 10^3/ul (0.8-2.9); LYMPHOCYTES % 4.3 % (15.0-51.0); MEAN CORPUSCULAR HEMOGLOBIN 27.5 pg (29.0-33.0); MEAN CORPUSCULAR HGB CONC 32.2 g/dl (32.0-37.0); MEAN CORPUSCULAR VOLUME 85.2 fl (82.0-101.0); MEAN PLATELET VOLUME 8.5 fl (7.4-10.4); MONOCYTE # 0.8 10^3/ul (0.3-0.9); NEUTROPHIL # 13.4 10^3/ul (1.6-7.5); NEUTROPHILS % 89.2 % (39.0-77.0); PLATELET COUNT 776 10^3/UL (140-415); RED BLOOD COUNT 3.86 10^6/ul (4.70-6.10); RED CELL DISTRIBUTION WIDTH 14.6 % (11.5-14.5)
[2018-05-28 08:31] LABS: PHOSPHORUS 3.3 mg/dl (2.5-4.9)
[2018-05-28 08:31] LABS: MAGNESIUM 2.2 mg/dl (1.7-2.5)
[2018-05-28 08:32] LABS: ANION GAP 11 (8-16); BLOOD UREA NITROGEN 5 mg/dl (7-20); CALCIUM 8.3 mg/dl (8.4-10.2); CARBON DIOXIDE 33 mmol/L (21-31); CHLORIDE 96 mmol/L (97-110); CREATININE 0.58 mg/dl (0.61-1.24); GLUCOSE 99 mg/dl (70-220); POTASSIUM 3.4 mmol/L (3.5-5.1); SODIUM 137 mmol/L (135-144)
[2018-05-29] MEDS: PIPER-TAZO 3.375 GM IV (PMX) 100 ML IVPB ×3 (05:53→17:29)
[2018-05-29] MEDS: PANTOPRAZOLE 40 MG INJ IV (05:53)
[2018-05-29 07:16] LABS: ADD MAN DIFF? NO
[2018-05-29 07:19] LABS: WHITE BLOOD COUNT 14.1 10^3/ul (4.8-10.8)
[2018-05-29 07:19] LABS: ABNORMAL IP MESSAGE 1; BASOPHILS % 0.1 % (0.0-2.0); EOSINOPHILS # 0.1 10^3/ul (0.0-0.5); EOSINOPHILS % 0.5 % (0.0-7.0); HEMATOCRIT 32.3 % (42.0-52.0); HEMOGLOBIN 10.4 g/dl (14.0-18.0); LYMPHOCYTES # 0.5 10^3/ul (0.8-2.9); LYMPHOCYTES % 3.8 % (15.0-51.0); MEAN CORPUSCULAR HEMOGLOBIN 27.5 pg (29.0-33.0); MEAN CORPUSCULAR HGB CONC 32.2 g/dl (32.0-37.0); MEAN CORPUSCULAR VOLUME 85.4 fl (82.0-101.0); MEAN PLATELET VOLUME 8.3 fl (7.4-10.4); MONOCYTE # 0.7 10^3/ul (0.3-0.9); NEUTROPHIL # 12.7 10^3/ul (1.6-7.5); PLATELET COUNT 729 10^3/UL (140-415); POSITIVE DIFF @See below; RED BLOOD COUNT 3.78 10^6/ul (4.70-6.10); RED CELL DISTRIBUTION WIDTH 14.6 % (11.5-14.5)
[2018-05-29 07:47] LABS: ANION GAP 8 (8-16); BLOOD UREA NITROGEN 6 mg/dl (7-20); CALCIUM 8.3 mg/dl (8.4-10.2); CARBON DIOXIDE 34 mmol/L (21-31); CHLORIDE 97 mmol/L (97-110); CREATININE 0.65 mg/dl (0.61-1.24); GLUCOSE 100 mg/dl (70-220); POTASSIUM 3.2 mmol/L (3.5-5.1); SODIUM 136 mmol/L (135-144)
[2018-05-29 07:48] LABS: PHOSPHORUS 3.5 mg/dl (2.5-4.9)
[2018-05-29 07:53] LABS: VANCOMYCIN,TROUGH 19.1 ug/ml (10.0-20.0)
[2018-05-29] MEDS: VANCOMYCIN 1 GM 250 ML IVPB (08:25)
[2018-05-29] MEDS: metroNIDAZOLE 500 MG/NS (PMX) 100 ML IVPB ×2 (18:57→23:58)
[2018-05-29] MEDS: RIFAXIMIN 200 MG TAB PO (20:32)
[2018-05-29] MEDS ORDERED: VANCOMYCIN 1.5 GM in SOD CHLORIDE 0.9% 250 ML IVPB (21:00)
[2018-05-30] MEDS: metroNIDAZOLE 500 MG/NS (PMX) 100 ML IVPB ×4 (05:46→18:08)
[2018-05-30] MEDS: LEVOFLOXACIN 500 MG TAB PO (05:46)
[2018-05-30] MEDS: PANTOPRAZOLE 40 MG INJ IV (05:46)
[2018-05-30 07:13] LABS: ADD MAN DIFF? NO
[2018-05-30 07:17] LABS: ABNORMAL IP MESSAGE 1; BASOPHILS % 0.2 % (0.0-2.0); EOSINOPHILS # 0.1 10^3/ul (0.0-0.5); EOSINOPHILS % 0.4 % (0.0-7.0); HEMATOCRIT 31.6 % (42.0-52.0); HEMOGLOBIN 10.3 g/dl (14.0-18.0); LYMPHOCYTES # 0.6 10^3/ul (0.8-2.9); LYMPHOCYTES % 4.2 % (15.0-51.0); MEAN CORPUSCULAR HEMOGLOBIN 27.6 pg (29.0-33.0); MEAN CORPUSCULAR HGB CONC 32.6 g/dl (32.0-37.0); MEAN CORPUSCULAR VOLUME 84.7 fl (82.0-101.0); MEAN PLATELET VOLUME 8.4 fl (7.4-10.4); MONOCYTE # 0.8 10^3/ul (0.3-0.9); MONOCYTES % 5.8 % (0.0-11.0); NEUTROPHIL # 12.4 10^3/ul (1.6-7.5); NEUTROPHILS % 88.6 % (39.0-77.0); PLATELET COUNT 816 10^3/UL (140-415); POSITIVE DIFF @See below; RED BLOOD COUNT 3.73 10^6/ul (4.70-6.10); RED CELL DISTRIBUTION WIDTH 14.6 % (11.5-14.5)
[2018-05-30 07:38] LABS: ANION GAP 10 (8-16); BLOOD UREA NITROGEN 6 mg/dl (7-20); CALCIUM 8.2 mg/dl (8.4-10.2); CARBON DIOXIDE 32 mmol/L (21-31); CHLORIDE 97 mmol/L (97-110); CREATININE 0.64 mg/dl (0.61-1.24); GLUCOSE 107 mg/dl (70-220); POTASSIUM 3.1 mmol/L (3.5-5.1); SODIUM 136 mmol/L (135-144)
[2018-05-30 07:44] LABS: MAGNESIUM 1.9 mg/dl (1.7-2.5)
[2018-05-30 07:44] LABS: PHOSPHORUS 3.5 mg/dl (2.5-4.9)
[2018-05-30] MEDS: RIFAXIMIN 200 MG TAB PO ×3 (08:44→22:05)
[2018-05-30] MEDS: POTASSIUM CHLORIDE (SR) 20 MEQ TAB PO ×2 (10:08→13:29)
[2018-05-30] MEDS: IOHEXOL 300MG/ML 150 ML BTL (18:03)
[2018-05-30] MEDS: SOD CHLORIDE 0.9% 100 ML (18:03)
[2018-05-31] MEDS: metroNIDAZOLE 500 MG/NS (PMX) 100 ML IVPB ×3 (01:52→11:49)
[2018-05-31] MEDS: LEVOFLOXACIN 500 MG TAB PO (06:19)
[2018-05-31] MEDS: PANTOPRAZOLE 40 MG INJ IV (06:19)
[2018-05-31] MEDS: RIFAXIMIN 200 MG TAB PO ×4 (08:49→14:25)
[2018-05-31 09:11] LABS: ADD MAN DIFF? NO
[2018-05-31 09:19] LABS: ABNORMAL IP MESSAGE 1; BASOPHILS % 0.3 % (0.0-2.0); EOSINOPHILS % 0.3 % (0.0-7.0); HEMATOCRIT 31.4 % (42.0-52.0); HEMOGLOBIN 10.1 g/dl (14.0-18.0); LYMPHOCYTES # 0.6 10^3/ul (0.8-2.9); LYMPHOCYTES % 4.9 % (15.0-51.0); MEAN CORPUSCULAR HEMOGLOBIN 27.2 pg (29.0-33.0); MEAN CORPUSCULAR HGB CONC 32.2 g/dl (32.0-37.0); MEAN CORPUSCULAR VOLUME 84.4 fl (82.0-101.0); MEAN PLATELET VOLUME 8.6 fl (7.4-10.4); MONOCYTE # 0.8 10^3/ul (0.3-0.9); MONOCYTES % 6.8 % (0.0-11.0); NEUTROPHIL # 10.1 10^3/ul (1.6-7.5); NEUTROPHILS % 87.1 % (39.0-77.0); POSITIVE DIFF @See below; RED BLOOD COUNT 3.72 10^6/ul (4.70-6.10); RED CELL DISTRIBUTION WIDTH 14.6 % (11.5-14.5)
[2018-05-31 09:19] LABS: WHITE BLOOD COUNT 11.6 10^3/ul (4.8-10.8)
[2018-05-31 09:21] LABS: PLATELET COUNT 867 10^3/UL (140-415)
[2018-05-31 09:53] LABS: ANION GAP 14 (8-16); BLOOD UREA NITROGEN 7 mg/dl (7-20); CALCIUM 8.7 mg/dl (8.4-10.2); CARBON DIOXIDE 29 mmol/L (21-31); CHLORIDE 98 mmol/L (97-110); CREATININE 0.68 mg/dl (0.61-1.24); GLUCOSE 88 mg/dl (70-220); MAGNESIUM 1.9 mg/dl (1.7-2.5); POTASSIUM 3.4 mmol/L (3.5-5.1); SODIUM 138 mmol/L (135-144)
[2018-05-31] MEDS: AMOXICILLIN/CLAV 875 MG TAB PO (20:57)
[2018-06-01] MEDS: LEVOFLOXACIN 500 MG TAB PO (06:35)
[2018-06-01] MEDS: PANTOPRAZOLE 40 MG INJ IV (06:36)
[2018-06-01] MEDS: SOD CHLORIDE 0.9% 500 ML (09:28)
[2018-06-01] MEDS: LIDOCAINE 1% (MPF) 5 ML VIAL ×2 (09:28→10:39)
[2018-06-01 09:44] LABS: ADD MAN DIFF? NO
[2018-06-01 09:48] LABS: ABNORMAL IP MESSAGE 1; BASOPHILS % 0.4 % (0.0-2.0); EOSINOPHILS % 0.4 % (0.0-7.0); HEMATOCRIT 33.8 % (42.0-52.0); LYMPHOCYTES # 0.6 10^3/ul (0.8-2.9); LYMPHOCYTES % 5.4 % (15.0-51.0); MEAN CORPUSCULAR HEMOGLOBIN 27.6 pg (29.0-33.0); MEAN CORPUSCULAR HGB CONC 32.5 g/dl (32.0-37.0); MEAN CORPUSCULAR VOLUME 84.9 fl (82.0-101.0); MEAN PLATELET VOLUME 8.5 fl (7.4-10.4); MONOCYTE # 0.7 10^3/ul (0.3-0.9); MONOCYTES % 6.4 % (0.0-11.0); NEUTROPHIL # 9.5 10^3/ul (1.6-7.5); NEUTROPHILS % 86.9 % (39.0-77.0); PLATELET COUNT 944 10^3/UL (140-415); POSITIVE DIFF @See below; RED BLOOD COUNT 3.98 10^6/ul (4.70-6.10); RED CELL DISTRIBUTION WIDTH 14.7 % (11.5-14.5)
[2018-06-01 10:06] LABS: ANION GAP 10 (8-16); BLOOD UREA NITROGEN 7 mg/dl (7-20); CALCIUM 8.7 mg/dl (8.4-10.2); CARBON DIOXIDE 31 mmol/L (21-31); CHLORIDE 99 mmol/L (97-110); CREATININE 0.67 mg/dl (0.61-1.24); GLUCOSE 100 mg/dl (70-220); POTASSIUM 3.2 mmol/L (3.5-5.1); SODIUM 137 mmol/L (135-144)
[2018-06-01] MEDS: MIDAZOLAM 1 MG/ML 2 ML INJ (10:23)
[2018-06-01] MEDS: FENTAnyl 50 MCG/ML VIAL (10:23)
[2018-06-01] MEDS: AMOXICILLIN/CLAV 875 MG TAB PO ×2 (11:41→22:02)
[2018-06-01] MEDS: POTASSIUM CHLORIDE 50 ML IVPB ×3 (11:48→17:32)
[2018-06-02] MEDS: LEVOFLOXACIN 500 MG TAB PO (05:50)
[2018-06-02] MEDS: PANTOPRAZOLE 40 MG INJ IV (05:50)
[2018-06-02 07:24] LABS: ADD MAN DIFF? NO
[2018-06-02 07:28] LABS: BASOPHILS % 0.3 % (0.0-2.0); EOSINOPHILS # 0.1 10^3/ul (0.0-0.5); EOSINOPHILS % 0.5 % (0.0-7.0); HEMATOCRIT 34.4 % (42.0-52.0); HEMOGLOBIN 10.6 g/dl (14.0-18.0); LYMPHOCYTES # 0.8 10^3/ul (0.8-2.9); LYMPHOCYTES % 7.4 % (15.0-51.0); MEAN CORPUSCULAR HEMOGLOBIN 26.4 pg (29.0-33.0); MEAN CORPUSCULAR HGB CONC 30.8 g/dl (32.0-37.0); MEAN CORPUSCULAR VOLUME 85.6 fl (82.0-101.0); MEAN PLATELET VOLUME 8.4 fl (7.4-10.4); MONOCYTE # 0.8 10^3/ul (0.3-0.9); MONOCYTES % 7.2 % (0.0-11.0); NEUTROPHIL # 9.1 10^3/ul (1.6-7.5); RED BLOOD COUNT 4.02 10^6/ul (4.70-6.10)
[2018-06-02 07:28] LABS: WHITE BLOOD COUNT 10.8 10^3/ul (4.8-10.8)
[2018-06-02 07:42] LABS: PLATELET COUNT 808 10^3/UL (140-415)
[2018-06-02 08:14] LABS: ANION GAP 8 (8-16); BLOOD UREA NITROGEN 8 mg/dl (7-20); CALCIUM 8.7 mg/dl (8.4-10.2); CARBON DIOXIDE 31 mmol/L (21-31); CHLORIDE 101 mmol/L (97-110); CREATININE 0.65 mg/dl (0.61-1.24); GLUCOSE 119 mg/dl (70-220); POTASSIUM 3.9 mmol/L (3.5-5.1); SODIUM 136 mmol/L (135-144)
[2018-06-02] MEDS: AMOXICILLIN/CLAV 875 MG TAB PO (08:43)
== END 2018-06-02 12:46 | disposition home health service (06) | DRG 329 ==
LOC: REC 07:20 → MS1 05-15 18:48 → TEL 05-19 13:28 → MS1 19:51 → ICU 21:37
PROC: 0DTE0ZZ Resection of Large Intestine, Open Approach (ICD-10-PCS; principal; 2018-05-14 11:00)
PROC: 0D1B0Z4 Bypass Ileum to Cutaneous, Open Approach (ICD-10-PCS; 2018-05-14 11:00)
PROC: 0W9B30Z Drainage of Left Pleural Cavity with Drainage Device, Percutaneous Approach (ICD-10-PCS; 2018-05-14 11:34)
PROC: 0J9C30Z Drainage of Pelvic Region Subcutaneous Tissue and Fascia with Drainage Device, Percutaneous Approach (ICD-10-PCS; 2018-05-14 11:34)
PROC: 0J9C30Z Drainage of Pelvic Region Subcutaneous Tissue and Fascia with Drainage Device, Percutaneous Approach (ICD-10-PCS; 2018-05-14 11:34)
DX: K58.9 Irritable bowel syndrome, unspecified (principal); A41.9 Sepsis, unspecified organism; K65.1 Peritoneal abscess; K91.89 Other postprocedural complications and disorders of digestive system; T81.4XXA Infection following a procedure, initial encounter; J90 Pleural effusion, not elsewhere classified; K63.5 Polyp of colon; D64.9 Anemia, unspecified; K57.30 Diverticulosis of large intestine without perforation or abscess without bleeding; Z87.891 Personal history of nicotine dependence; R06.03 Acute respiratory distress
CPT/HCPCS: 71045; 71046; 71260; 74018; 74177; 76942; 77012; 80048; 80053; 80202; 82962; 83605; 83735; 84100; 84443; 85025; 85610; 85730; 87070; 87075; 87081; 87086; 88309; 93005; 94640; 94664; 97110; 97116; 97161; 97530